=== PATIENT | male | born 1945 | race Caucasian/White ===

== ENCOUNTER → 2016-08-03 | Outpatient (CLI) | payer OTHER | END | disposition home or self-care (01) | LOC: CVU 07:40 | PROVIDERS: ATTEND Internal Medicine Cardiovascular Disease | DX: I51.7 Cardiomegaly (principal); I08.3 Combined rheumatic disorders of mitral, aortic and tricuspid valves; Q23.1 Congenital insufficiency of aortic valve; Z95.2 Presence of prosthetic heart valve | CPT/HCPCS: 93306 ==

== ENCOUNTER 2017-10-15 07:51 | Day surgery (SDC) | payer OTHER ==
[2017-10-14 10:57] VITALS: BP 127/86
[2017-10-14 11:27] LABS: BASOPHILS # (AUTO) 0.02 x10^3/uL (0-0.1); BASOPHILS % (AUTO) 0 % (0-1); EOSINOPHILS # (AUTO) 0.13 x10^3/uL (0-0.4); EOSINOPHILS % (AUTO) 3 % (1-7); LYMPHOCYTES # (AUTO) 1.25 x10^3/uL (1-3.4); LYMPHOCYTES % (AUTO) 25 % (22-44); MD NO; MEAN CORPUSCULAR HEMOGLOBIN 30.7 pg (27.5-34.5); MEAN CORPUSCULAR HGB CONC 33.6 g/dL (33.2-36.2); MEAN CORPUSCULAR VOLUME 91.1 fL (81-97); MEAN PLATELET VOLUME 7.7 fL (7.4-10.4); MONOCYTES # (AUTO) 0.41 x10^3/uL (0.2-0.8); MONOCYTES % (AUTO) 8 % (2-9); NEUTROPHILS # (AUTO) 3.12 x10^3/uL (1.8-6.8); NEUTROPHILS % (AUTO) 63 % (42-75); PLATELET COUNT 140 x10^3/uL (130-400); RED BLOOD COUNT 5.16 x10^6/uL (4.38-5.82); RED CELL DISTRIBUTION WIDTH 13.9 % (9.4-14.8)
[2017-10-14 11:35] LABS: INTERNATIONAL NORMALIZED RATIO 2.14 (0.93-1.1); PROTHROMBIN TIME 21.7 Seconds (9.6-11.5)
[2017-10-14 11:40] LABS: ANION GAP 6 mmol/L (5-15); CALCIUM 8.5 mg/dL (8.5-10.1); CHLORIDE 103 mmol/L (98-107)
[2017-10-14 11:43] LABS: ALANINE AMINOTRANSFERASE 29 U/L (12-78); ALKALINE PHOSPHATASE 129 U/L (45-117); BILIRUBIN,TOTAL 1.1 mg/dL (0.2-1.0); CREATININE 1.34 mg/dL (0.7-1.3)
[~2017-10-15] VITALS: Ht 193 cm; Wt 115.9 kg
[~2017-10-15 07:51] MED LIST: AMIT25TA PO; ATEN25TA PO; DIAZ10TA4 PO; LISI-170 PO; OXYC20TA42 PO; WARF-36 PO
[2017-10-15] MEDS ORDERED: ISOPROTERENOL 0.2MG/ML, 5ML ONE (07:59)
[2017-10-15] MEDS ORDERED: LIDOCAINE/PF 1%, 30ML ONE (07:59)
[2017-10-15] MEDS ORDERED: DICL100G19 TP (08:23)
[2017-10-15] MEDS ORDERED: LIDO700A42 TD (08:23)
[2017-10-15] MEDS ORDERED: MIDAZOLAM 1 MG/ML, 2ML ONE (08:37)
[2017-10-15] MEDS ORDERED: FENTANYL PF 250 MCG/5ML ONE (08:37)
[2017-10-15] MEDS ORDERED: CEFAZOLIN 1,000 MG ONE (08:53)
[2017-10-15] MEDS ORDERED: SUCCINYLCHOLINE 20 MG/ML, 10ML ONE (08:53)
[2017-10-15] MEDS ORDERED: ROCURONIUM 10MG/ML,5ML ONE (08:53)
[2017-10-15] MEDS ORDERED: PROPOFOL 10 MG/ML, 20ML ONE (08:53)
[2017-10-15] MEDS ORDERED: EPHEDRINE 50 MG/ML, 1ML ONE (08:53)
[2017-10-15] MEDS ORDERED: DEXAMETHASONE 4 MG/ML, 1ML ONE (08:53)
[2017-10-15 08:56] LABS: INTERNATIONAL NORMALIZED RATIO 2.21 (0.93-1.1); PROTHROMBIN TIME 22.4 Seconds (9.6-11.5)
[2017-10-15] MEDS ORDERED: PROMETHAZINE 25 MG/ML, 1ML IV PRN (10:30)
[2017-10-15] MEDS ORDERED: ALBUTEROL SULFATE 2.5 MG/3 ML NPPB PRN (10:30)
[2017-10-15] MEDS ORDERED: LABETALOL 5MG/ML, 20ML IV PRN (10:30)
[2017-10-15] MEDS ORDERED: ONDANSETRON ODT 8 MG PO PRN (10:30)
[2017-10-15] MEDS ORDERED: MEPERIDINE/PF 25MG/0.5ML IVPush PRN (10:30)
[2017-10-15] MEDS ORDERED: PROMETHAZINE 12.5 MG SUPP PR PRN (10:30)
[2017-10-15] MEDS ORDERED: FENTANYL PF 100 MCG/2ML IV PRN (10:30)
[2017-10-15] MEDS ORDERED: ACETAMINOPHEN 325 MG TABLET PO PRN (10:30)
[2017-10-15] MEDS ORDERED: MIDAZOLAM 1 MG/ML, 2ML IV PRN (10:30)
[2017-10-15] MEDS ORDERED: hydrALAzine 20 MG/ML, 1ML IV PRN (10:30)
[2017-10-15] MEDS ORDERED: MORPHINE SULFATE 4 MG/ML, 1ML IVPush PRN (10:30)
[2017-10-15] MEDS ORDERED: OXYcodone 5 MG/5 ML ORAL.SOL UDC PO PRN (10:30)
[2017-10-15] MEDS ORDERED: OxyconTIN ER 20 MG TAB.ER PO SCH (16:00)
[2017-10-15] MEDS ORDERED: AMITRIPTYLINE 25 MG TABLET PO SCH (21:00)
[2017-10-16] MEDS ORDERED: LISINOPRIL 20 MG TABLET PO SCH (09:00)
[2017-10-16] MEDS ORDERED: DIAZEPAM 10 MG TABLET PO SCH (09:00)
[2017-10-16] MEDS ORDERED: WARFARIN 5 MG TABLET PO-COUM SCH (09:00)
[2017-10-16] MEDS ORDERED: ATENOLOL 25 MG TABLET PO SCH (09:00)
== END 2017-10-15 14:55 | disposition home or self-care (01) ==
LOC: CACL 07:51
PROVIDERS: ATTEND Internal Medicine Cardiovascular Disease
DX: I48.92 Unspecified atrial flutter (principal); Z88.8 Allergy status to other drugs, medicaments and biological substances; Z95.2 Presence of prosthetic heart valve
CPT/HCPCS: 36415; 71046; 80053; 85025; 85610; 85730; 93005; 93613; 93621; 93653; C1730; C1731; C1766; C1894; C2630; J0330; J0690; J1100; J2250; J2704; J3010; J3490

== ENCOUNTER 2017-11-11 11:48 | Emergency (ER) | payer OTHER ==
[~2017-11-11] VITALS: Ht 193 cm; Wt 114.5 kg
[~2017-11-11 11:48] MED LIST changes: +DICL100G19 TP; +LIDO700A42 TD
[2017-11-11 11:51] VITALS: BP 101/62
[2017-11-11] MEDS ORDERED: SODIUM CHLORIDE 0.9% 1,000ML IVBOLUS ONE (13:00)
[2017-11-11] MEDS ORDERED: SODIUM CHLORIDE FLUSH 10ML SYR IVF ONE (13:00)
[2017-11-11 13:16] LABS: BASOPHILS # (AUTO) 0.02 x10^3/uL (0-0.1); BASOPHILS % (AUTO) 0 % (0-1); EOSINOPHILS # (AUTO) 0.02 x10^3/uL (0-0.4); EOSINOPHILS % (AUTO) 0 % (1-7); LYMPHOCYTES # (AUTO) 0.72 x10^3/uL (1-3.4); LYMPHOCYTES % (AUTO) 9 % (22-44); MD NO; MEAN CORPUSCULAR HEMOGLOBIN 30.7 pg (27.5-34.5); MEAN CORPUSCULAR HGB CONC 33.6 g/dL (33.2-36.2); MEAN CORPUSCULAR VOLUME 91.3 fL (81-97); MEAN PLATELET VOLUME 7.8 fL (7.4-10.4); MONOCYTES # (AUTO) 0.87 x10^3/uL (0.2-0.8); MONOCYTES % (AUTO) 10 % (2-9); NEUTROPHILS % (AUTO) 81 % (42-75); PLATELET COUNT 114 x10^3/uL (130-400); RED BLOOD COUNT 4.65 x10^6/uL (4.38-5.82); RED CELL DISTRIBUTION WIDTH 13.5 % (9.4-14.8)
[2017-11-11 13:25] LABS: ALBUMIN 3.9 g/dL (3.4-5.0); ANION GAP 6 mmol/L (5-15); CALCIUM 8.6 mg/dL (8.5-10.1); CHLORIDE 99 mmol/L (98-107); CREATININE 1.69 mg/dL (0.7-1.3)
[2017-11-11 13:54] LABS: INTERNATIONAL NORMALIZED RATIO 4.47 (0.93-1.1); PROTHROMBIN TIME 45.1 Seconds (9.6-11.5)
[2017-11-11] MEDS ORDERED: OXYcodone/APAP 5/325MG TABLET PO ONE (14:00)
[2017-11-11] MEDS ORDERED: OXYcodone/APAP 5/325MG TABLET ONE (14:07)
== END 2017-11-11 14:19 | disposition home or self-care (01) ==
LOC: ED 14:16
DX: S93.601A Unspecified sprain of right foot, initial encounter (principal); R55 Syncope and collapse; I48.92 Unspecified atrial flutter; X50.1XXA Overexertion from prolonged static or awkward postures, initial encounter; Y93.89 Activity, other specified; Y92.009 Unspecified place in unspecified non-institutional (private) residence as the place of occurrence of the external cause; Y99.8 Other external cause status
CPT/HCPCS: 36415; 80048; 82040; 85025; 85610; 93005; 96360; 99285; J7030

== ENCOUNTER → 2019-06-29 | Outpatient (CLI) | payer MEDICARE ==
[~2019-06-29] MED LIST changes: +HYDR-3240 PO
== END | disposition home or self-care (01) ==
LOC: CVU 14:46
PROVIDERS: ATTEND Internal Medicine Cardiovascular Disease
DX: I08.8 Other rheumatic multiple valve diseases (principal); I11.9 Hypertensive heart disease without heart failure; I71.2 Thoracic aortic aneurysm, without rupture; I25.5 Ischemic cardiomyopathy
CPT/HCPCS: 93306